=== PATIENT | male | born 1995 | race Caucasian/White ===

== ENCOUNTER 2024-03-16 12:22 | Emergency (ER) | payer OTHER ==
[~2024-03-16] VITALS: Ht 167.6 cm; Wt 71.0 kg
[2024-03-16] MEDS ORDERED: SODIUM CHLORIDE 0.9% 1,000 ML IV ONE (12:25)
[2024-03-16 12:39] VITALS: BP 144/85
[2024-03-16] MEDS ORDERED: HALOPERIDOL LACTATE 5 MG/ML SDV IV ONE (12:40)
[2024-03-16] MEDS ORDERED: FAMOTIDINE 10MG/ML 2ML SDV IV ONE (12:40)
[2024-03-16] MEDS ORDERED: methylPREDNISolone SODIUM SUCC 125 MG/2 ML SDV IV ONE (12:40)
[2024-03-16] MEDS ORDERED: DiphenhydrAMINE HCL 50 MG/ML SDV IV ONE (12:40)
[2024-03-16 12:48] LABS: BASO% 0.4 % (0-3); EOS% 0.3 % (0-8); HEMATOCRIT 42.5 % (39.0-50.0); HEMOGLOBIN 14.8 g/dl (14.0-18.0); IMMATURE GRANULOCYTES 0.1 % (0.0-5.0); LYMPH% 16.3 % (15-41); MEAN CELL VOLUME 91.4 fL CALC (80.0-100.0); MEAN CORPUSCULAR HGB 31.8 pG CALC (26.0-32.0); MEAN CORPUSCULAR HGB CONC 34.8 g/dL CAL (32.0-36.0); MONO% 10.8 % (2-13); NEUT# 7.63 thou/uL (1.82-7.42); NEUT% 72.1 % (42-76); RED BLOOD COUNT 4.65 mill/uL (4.70-6.10)
[2024-03-16 13:00] VITALS: BP 130/84
[2024-03-16 13:00] LABS: ALBUMIN 5.2 g/dL (3.2-5.0); ALKALINE PHOSPHATASE 79 u/l (38-126); ANION GAP 16 (6-22 (CALC)); BILIRUBIN, TOTAL 0.9 mg/dL (0.2-1.3); BUN 16 mg/dL (9-20); BUN/CREATININE RATIO 23 (12-20 (CALC)); CARBON DIOXIDE 23 mmol/l (22-30); CHLORIDE 106 mmol/l (95-108); CREATININE 0.7 mg/dL (0.7-1.3); ESTIMATED GFR 127 ML/MIN (>=90 (CALC)); ETHYL ALCOHOL 0 mg/dl (0-30); POTASSIUM 3.9 mmol/l (3.5-5.1); SGOT/AST 31 u/l (17-59); SODIUM 141 mmol/l (137-146); TOTAL PROTEIN 8.3 g/dL (6.3-8.2)
[2024-03-16 13:30] VITALS: BP 129/78
[2024-03-16 14:00] VITALS: BP 113/68
[2024-03-16 14:20] VITALS: BP 113/68
== END 2024-03-16 14:22 | disposition left against medical advice (07) | DRG 204 ==
LOC: ED 12:22
PROVIDERS: Family Medicine
DX: R06.02 Shortness of breath (principal); R51.9 Headache, unspecified; Z53.29 Procedure and treatment not carried out because of patient's decision for other reasons